=== PATIENT | female | born 1970 | race African-American/Black ===

== ENCOUNTER 2024-05-26 08:01 | Inpatient (IN) | payer MEDICAID, OTHER ==
[~2024-05-26] VITALS: Ht 149.9 cm; Wt 73.5 kg
[2024-05-26 08:07] VITALS: O2SAT 95
[2024-05-26 08:37] LABS: BASOPHILS % 0.4 % (0.0-2.0); EOSINOPHILS % 0.7 % (0.0-5.0); HEMATOCRIT. 42.3 % (36.0-48.0); HEMOGLOBIN. 13.7 g/dL (12.0-16.0); LYMPHOCYTES % 30.3 % (20.0-50.0); MEAN CORPUSCULAR HEMOGLOBIN 31.3 pg (28.0-32.0); MEAN CORPUSCULAR HGB CONC 32.5 g/dL (31.0-37.0); MEAN CORPUSCULAR VOLUME 96.5 fL (81.0-99.0); MONOCYTES % 10.5 % (2.0-8.0); NEUTROPHILS % 58.1 % (40.0-76.0); PLATELET 274 x1000/uL (130-400); RED BLOOD CELL COUNT 4.39 mill/uL (4.2-5.4); RED CELL DISTRIBUTION WIDTH 13.1 % (11.6-14.6); WHITE BLOOD COUNT 5.4 x1000/uL (4.5-11.0)
[2024-05-26] MEDS: ACETAMINOPHEN 325MG TABLET PO ONE (08:45)
[2024-05-26 08:47] LABS: CHLORIDE 106 mEq/L (98-107); SODIUM 139 mEq/L (136-145)
[2024-05-26 08:48] LABS: CALCIUM 10.5 mg/dL (8.7-10.4); CARBON DIOXIDE 27 mEq/L (21-32)
[2024-05-26 08:53] LABS: CREATININE 1.2 mg/dL (0.6-1.0); GLUCOSE 102 mg/dL (70-105); UREA NITROGEN BLOOD 14 mg/dL (9-23)
[2024-05-26] MEDS: LEVETIRACETAM 500MG PREMIX 100 ML IV ONE ×2 (09:27→09:31)
[2024-05-26] MEDS: LACTATED RINGERS 1,000 ML IV SCH (09:32)
[2024-05-26 10:28] LABS: ALANINE AMINOTRANSFERASE 36 IU/L (10-49); ALBUMIN 4.8 g/dL (3.2-4.8); ASPARTATE AMINOTRANSFERASE 26 IU/L (<34); BILIRUBIN TOTAL 0.3 mg/dL (0.1-1.0)
[2024-05-26 10:31] LABS: BILIRUBIN DIRECT < 0.1 mg/dL (<=3.0)
[2024-05-26 11:04] LABS: HCG SCREEN NEGATIVE
[2024-05-26] MEDS: MORPHINE SULFATE 2 MG/ML INJ (NOT FOR IM USE) IV ONE (11:08)
[2024-05-26 11:32] LABS: TROPONIN I HIGH SENSITIVITY < 4 ng/L (3.0-34)
[2024-05-26] MEDS: MORPHINE SULFATE 2 MG/ML INJ (NOT FOR IM USE) IV PRN (17:07)
[2024-05-26] MEDS ORDERED: NALOXONE HCL 0.4MG/ML VIAL IV PRN (17:30)
[2024-05-26 18:25] VITALS: BP 180/92; PULSE 107; RESP 18; TEMP 36.6696; O2SAT 99
[2024-05-26 18:53] VITALS: BP 180/92; PULSE 107; RESP 18; TEMP 36.696
[2024-05-26 20:00] VITALS: BP 187/99; PULSE 96; RESP 20; TEMP 36.61404; O2SAT 100
[2024-05-26] MEDS ORDERED: CLON-493 PO (20:00)
[2024-05-26] MEDS ORDERED: ONDANSETRON HCL 4MG/2ML INJ IV PRN (20:00)
[2024-05-26] MEDS ORDERED: CLOP-31 MT (20:00)
[2024-05-26] MEDS ORDERED: LORAZEPAM 2MG/ML INJ IV PRN (20:00)
[2024-05-26] MEDS ORDERED: ACETAMINOPHEN 325MG TABLET PO PRN (20:00)
[2024-05-26] MEDS ORDERED: HYDR25TA PO (20:00)
[2024-05-26] MEDS ORDERED: LOSA25TA26 PO (20:00)
[2024-05-26] MEDS ORDERED: CARV25TA47 PO (20:00)
[2024-05-26] MEDS ORDERED: ASPI-986 MT (20:00)
[2024-05-26] MEDS ORDERED: ATOR10TA MT (20:00)
[2024-05-26] MEDS: LEVETIRACETAM 500MG PREMIX 100 ML IV SCH (21:36)
[2024-05-26] MEDS: ENOXAPARIN 40MG/0.4ML SYR SUBCUT SCH (21:36)
[2024-05-26] MEDS: CLONIDINE 0.1MG TABLET PO PRN (22:28)
[2024-05-26 23:32] LABS: TROPONIN I HIGH SENSITIVITY 4 ng/L (3.0-34)
[2024-05-26 23:33] LABS: CREATINE KINASE 64 IU/L (34-145)
[2024-05-27] VITALS: BP 167/94; PULSE 77; RESP 20; TEMP 36.6696; O2SAT 99
[2024-05-27] MEDS: ZOLPIDEM TARTRATE 5MG TABLET PO PRN (00:27)
[2024-05-27 04:00] VITALS: BP 148/70; PULSE 91; RESP 20; TEMP 36.61404; O2SAT 99
[2024-05-27 06:24] LABS: BASOPHILS % 0.5 % (0.0-2.0); EOSINOPHILS % 0.8 % (0.0-5.0); HEMATOCRIT. 40.2 % (36.0-48.0); HEMOGLOBIN. 13.2 g/dL (12.0-16.0); LYMPHOCYTES % 29.8 % (20.0-50.0); MEAN CORPUSCULAR HEMOGLOBIN 31.6 pg (28.0-32.0); MEAN CORPUSCULAR HGB CONC 32.8 g/dL (31.0-37.0); MEAN CORPUSCULAR VOLUME 96.3 fL (81.0-99.0); MEAN PLATELET VOLUME 8.2 fl (7.4-10.4); MONOCYTES % 11.7 % (2.0-8.0); NEUTROPHILS % 57.2 % (40.0-76.0); PLATELET 261 x1000/uL (130-400); RED BLOOD CELL COUNT 4.17 mill/uL (4.2-5.4); RED CELL DISTRIBUTION WIDTH 12.9 % (11.6-14.6)
[2024-05-27 06:34] LABS: CARBON DIOXIDE 27 mEq/L (21-32); CHLORIDE 105 mEq/L (98-107); POTASSIUM 3.8 mEq/L (3.5-5.1); SODIUM 138 mEq/L (136-145)
[2024-05-27 06:36] LABS: CALCIUM 9.6 mg/dL (8.7-10.4)
[2024-05-27 06:39] LABS: CREATINE KINASE MB FRACTION 0.9 ng/mL (0.5-3.6); TROPONIN I HIGH SENSITIVITY 4 ng/L (3.0-34)
[2024-05-27 06:40] LABS: CREATININE 0.7 mg/dL (0.6-1.0); GLUCOSE 105 mg/dL (70-105); UREA NITROGEN BLOOD 16 mg/dL (9-23)
[2024-05-27 06:41] LABS: CREATINE KINASE 55 IU/L (34-145)
[2024-05-27 08:00] VITALS: BP 177/95; PULSE 85; RESP 18; TEMP 36.61404; O2SAT 100
[2024-05-27 08:19] VITALS: BP 177/95
[2024-05-27 10:04] LABS: *AMPHETAMINES SCREEN URINE NEGATIVE (NEGATIVE); *BARBITURATES SCREEN URINE NEGATIVE (NEGATIVE); *BENZODIAZEPINES SCREEN URINE NEGATIVE (NEGATIVE); *COCAINE SCREEN URINE NEGATIVE (NEGATIVE); METHADONE URINE SCREEN NEGATIVE (NEGATIVE); OPIATES URINE SCREEN PRESUMPTIVE POSITIVE (NEGATIVE)
[2024-05-27 10:05] LABS: CANNABINOID URINE SCREEN NEGATIVE (NEGATIVE); ECSTASY MDMA SCREEN URINE NEGATIVE (NEGATIVE); PHENCYCLIDINE URINE SCREEN NEGATIVE (NEGATIVE)
[2024-05-27 13:02] VITALS: PULSE 85; TEMP 98
[2024-05-27] MEDS ORDERED: LEVETIRACETAM 500MG TABLET PO SCH (21:00)
== END 2024-05-27 13:20 | disposition home or self-care (01) | DRG 53 ==
LOC: ER 08:01 → 5WST 09:29 → 7WST 18:16
PROVIDERS: ADMIT Internal Medicine; ATTEND Internal Medicine
PROC: 4A00X4Z Measurement of Central Nervous Electrical Activity, External Approach (ICD-10-PCS; principal; 2024-05-27)
DX: G40.909 Epilepsy, unspecified, not intractable, without status epilepticus (principal); I10 Essential (primary) hypertension; J45.909 Unspecified asthma, uncomplicated; M25.561 Pain in right knee; M54.50 Low back pain, unspecified; Z88.0 Allergy status to penicillin; Z88.8 Allergy status to other drugs, medicaments and biological substances; I25.2 Old myocardial infarction; Z86.73 Personal history of transient ischemic attack (TIA), and cerebral infarction without residual deficits; Z90.49 Acquired absence of other specified parts of digestive tract; Z90.710 Acquired absence of both cervix and uterus; Z91.018 Allergy to other foods
CPT/HCPCS: 36415; 71045; 73562; 80048; 80076; 80305; 82550; 82553; 84484; 84703; 85025; 93005; 95816; 99291; J1650; J1953; J2270

== ENCOUNTER 2024-07-08 15:48 | Emergency (ER) | payer MEDICAID ==
[~2024-07-08] VITALS: Ht 149.9 cm; Wt 70.0 kg
[~2024-07-08 15:48] MED LIST: ALBU18HF2 INH; ASPI-1406 PO; ATOR10TA MT; CARV6.2548 PO; CLON-493 PO; CLOP-31 MT; HYDR25TA PO; IBUP-2030 PO; LEVE500T19 PO; LOSA25TA26 PO; OXYC1TAB12 PO; QUET25TA36 PO; TIZA-204 PO
[2024-07-08 15:53] VITALS: O2SAT 100
[2024-07-08 16:55] LABS: CHLORIDE 110 mEq/L (98-107); SODIUM 140 mEq/L (136-145)
[2024-07-08 16:56] LABS: CALCIUM 9.4 mg/dL (8.7-10.4); CARBON DIOXIDE 25 mEq/L (21-32)
[2024-07-08 17:01] LABS: CREATININE 0.6 mg/dL (0.6-1.0); GLUCOSE 118 mg/dL (70-105); UREA NITROGEN BLOOD 16 mg/dL (9-23)
[2024-07-08 17:03] LABS: ETHANOL BLOOD < 10 mg/dL (<10)
[2024-07-08] MEDS: ONDANSETRON HCL 4MG/2ML INJ IV ONE (17:29)
[2024-07-08] MEDS: MORPHINE SULFATE 4 MG/ML INJ (FOR IV/IM USE) IV ONE (17:29)
[2024-07-08 18:16] LABS: BASOPHILS % 0.5 % (0.0-2.0); EOSINOPHILS % 1.2 % (0.0-5.0); HEMATOCRIT. 38.1 % (36.0-48.0); HEMOGLOBIN. 12.3 g/dL (12.0-16.0); LYMPHOCYTES % 33.8 % (20.0-50.0); MEAN CORPUSCULAR HGB CONC 32.3 g/dL (31.0-37.0); MONOCYTES % 8.4 % (2.0-8.0); NEUTROPHILS % 56.1 % (40.0-76.0); PLATELET 256 x1000/uL (130-400); RED BLOOD CELL COUNT 3.85 mill/uL (4.2-5.4); RED CELL DISTRIBUTION WIDTH 14.5 % (11.6-14.6); WHITE BLOOD COUNT 4.9 x1000/uL (4.5-11.0)
[2024-07-08] MEDS ORDERED: DICL100G58 TP (18:39)
[2024-07-08] MEDS ORDERED: HYDR-4001 MT ×2 (18:43→18:46)
[2024-07-08 18:47] VITALS: BP 178/98; PULSE 88; RESP 18; TEMP 36.66960; O2SAT 100
== END 2024-07-08 18:58 | disposition home or self-care (01) ==
LOC: ER 15:48
DX: R56.9 Unspecified convulsions (principal); S76.011A Strain of muscle, fascia and tendon of right hip, initial encounter; S63.91XA Sprain of unspecified part of right wrist and hand, initial encounter; J45.909 Unspecified asthma, uncomplicated; I25.2 Old myocardial infarction; I10 Essential (primary) hypertension; Z88.0 Allergy status to penicillin; Z88.6 Allergy status to analgesic agent; Z79.899 Other long term (current) drug therapy; Z79.82 Long term (current) use of aspirin; X58.XXXA Exposure to other specified factors, initial encounter; Y93.01 Activity, walking, marching and hiking; Y92.89 Other specified places as the place of occurrence of the external cause; Y99.8 Other external cause status
CPT/HCPCS: 80048; 80320; 85025; 36415; 73502; 73130; 73562; 70450; 93005; 96374; 96375; 99285; 82542; J2405; J2270; Z7610 ×3; G0480